=== PATIENT | female | born 1965 | race Caucasian/White ===

== ENCOUNTER 2023-11-25 14:21 | Inpatient (IN) | payer OTHER ==
--- NOTE | 2023-11-25 16:18 | ED ---
Alcohol HPI - General Chief Complaint: Alcohol Stated Complaint: Failure to Thrive, Mental Health Time Seen by Provider: 11/25/23 16:18 Source: patient, family Mode of arrival: ambulatory Limitations: no limitations - History of Present Illness Initial Comments: 58-year-old female brought in by her niece with concerns for the patient not being able to care for herself. Patient is an alcoholic, unable to discern how much she normally drinks a day. Her last drink was at 10 PM on 11/24. Patient's niece states that she was able to get her into rehab, however when she took her there today she was unable to stand on her own, patient has not been able to bathe or feed herself. History of DTs and alcoholic acidosis. Patient admits to depression, states that she has been drinking because her son recently. Denies chest pain, difficulty breathing, abdominal pain, vomiting, fevers - Related Data Home Medications Medication Instructions Recorded Confirmed Albuterol Sulfate [Proair Hfa] 1 - 2 puff INHALATION RT-Q6H PRN 12/14/14 11/25/23 Folic Acid 1 mg PO DAILY 11/25/23 11/25/23 Metoprolol Tartrate [Lopressor] 25 mg PO BID 11/25/23 11/25/23 Thiamine [Vitamin B-1] 100 mg PO DAILY 11/25/23 11/25/23 hydroCHLOROthiazide [Hydrodiuril] 25 mg PO DAILY 11/25/23 11/25/23 Allergies Allergy/AdvReac Type Severity Reaction Status Date / Time codeine Allergy Nausea & Verified 11/25/23 22:00 Vomiting oxycodone HCl [From Percodan] Allergy Nausea & Verified 11/25/23 22:00 Vomiting oxycodone terephthalate Allergy Nausea & Verified 11/25/23 22:00 [From Percodan] Vomiting Review of Systems ROS Statement: Those systems with pertinent positive or pertinent negative responses have been documented in the HPI. ROS Other: All systems not noted in ROS Statement are negative. Past Medical History Past Medical History: Asthma, Hyperlipidemia, Hypertension Additional Past Medical History / Comment(s): STATES HEART MURMUR A CHILD & WITH IT WAS HEARD- NOT SINCE THEN.,HEMORRHOIDS-BLEEDING AFETR BM & "HURTS", HX POLYPS, WAS ON ZOCOR FOR 3 DAYS -WAS NAUSEATED WHILE ON IT-STOPPED 10 DAYS. AGO- SHE WILL DISCUSS WITH HER , SABINE VERTIGO History of Any Multi-Drug Resistant Organisms: None Reported Past Surgical History: Appendectomy Additional Past Surgical History / Comment(s): COLONOSCOPY X 2 Past Anesthesia/Blood Transfusion Reactions: No Reported Reaction Additional Past Anesthesia/Blood Transfusion Reaction / Comment(s): HX VERTIGO- HEIGHTS MAKE IT WORSE Past Psychological History: No Psychological Hx Reported Smoking Status: Current every day smoker Past Alcohol Use History: Occasional Past Drug Use History: None Reported - Past Family History Mother Family Medical History: Cancer Additional Family Medical History / Comment(s): LIVER,KIDNEY & LUNG CA General Exam General appearance: alert, in no apparent distress Head exam: Present: atraumatic, normocephalic Eye exam: Present: normal appearance Neck exam: Present: normal inspection Respiratory exam: Present: normal lung sounds bilaterally. Absent: respiratory distress, wheezes, rales, rhonchi, stridor Cardiovascular Exam: Present: regular rate, normal rhythm, normal heart sounds. Absent: systolic murmur, diastolic murmur, rubs, gallop, clicks Neurological exam: Present: alert, oriented X3 Psychiatric exam: Present: depressed Skin exam: Present: warm, dry Course Vital Signs 11/25/23 11/25/23 14:39 21:00 Temperature 98.1 F Pulse Rate 95 86 Respiratory 18 18 Rate Blood Pressure 99/66 112/66 O2 Sat by Pulse 100 100 Oximetry Medical Decision Making - Medical Decision Making Was pt. sent in by a medical professional or institution (, PA, DOCUMENTATION ANALYST, urgent care, hospital, or long term...) When possible be specific @ -No Did you speak to anyone other than the patient for history (EMS, parent, family, police, friend...)? What history was obtained from this source @ -History obtained from family Did you review nursing and triage notes (agree or disagree)? Why? @ -I reviewed and agree with nursing and triage notes Were old charts reviewed (outside hosp., previous admission, EMS record, old EKG, old radiological studies, urgent care reports/EKG's, long term records)? Report findings @ -No old charts were reviewed Differential Diagnosis (chest pain, altered mental status, abdominal pain women, abdominal pain men, vaginal bleeding, weakness, fever, dyspnea, syncope, headac he, dizziness, GI bleed, back pain, seizure, CVA, palpatations, mental health, musculoskeletal)? @ -MDM Differential Weakness: Hypoglycemia, shock, sepsis, hyponatremia, anemia, infection, PR, ETOH, adverse medicine reaction, overdose, stroke. ... This is not meant to be an all- inclusive list EKG interpreted by me (3pts min.). @ -As above X-rays interpreted by me (1pt min.). @ -None done CT interpreted by me (1pt min.). @ -None done U/S interpreted by me (1pt. min.). @ -None done What testing was considered but not performed or refused? (CT, X-rays, U/S, labs)? Why? @ -None What meds were considered but not given or refused? Why? @ -None Did you discuss the management of the patient with other professionals (professionals i.e. , PA, DOCUMENTATION ANALYST, lab, RT, psych nurse, social science instructor, vessel crew member, teacher, business enterprise officer, case therapist)? Give summary @ -I spoke with Dr. Goodrich who accepted admission Was smoking cessation discussed for >3mins.? @ -No Was critical care preformed (if so, how long)? @ -No Were there social determinants of health that impacted care today? How? (Homelessness, low income, unemployed, alcoholism, drug addiction, transportation, low edu. Level, literacy, decrease access to med. care, halfway, rehab)? @ -alcoholism Was there de-escalation of care discussed even if they declined (Discuss DNR or withdrawal of care, Hospice)? DNR status @ -No What co-morbidities impacted this encounter? (DM, HTN, Smoking, COPD, CAD, Cancer, CVA, ARF, Chemo, Hep., AIDS, mental health diagnosis, sleep apnea, morbid obesity)? @ -None Was patient admitted / discharged? Hospital course, mention meds given and route, prescriptions, significant lab abnormalities, going to OR and other pertinent info. @ -58-year-old female with history of alcoholism presenting with alcohol wi thdrawal and inability to care for herself. Brought in by her niece. History and physical exam were conducted. Patient appears to be an alcoholic ketoacidosis, anion gap 24 sodium 120 potassium 2.2 chloride 77 carbon dioxide 19. Phosphorus 2.3 and magnesium 1.5. AST 83 and ALT 69. Urine shows no infectious process. No leukocytosis or anemia. Patient is started on potassium and magnesium replacement, started on D5/0.45 at rate of 75cc/hr. discussed admission and treatment plan with admitting physician Dr. Goodrich. patient and family are agreeable to this plan. She is placed on CIWA and seizure precautions. I discussed this case with my attending Dr. Jeong. Undiagnosed new problem with uncertain prognosis? @ -No Drug Therapy requiring intensive monitoring for toxicity (Heparin, Nitro, Insulin, Cardizem)? @ -No Were any procedures done? @ -No Diagnosis/symptom? @ -alcoholic ketoacidosis, alcohol withdrawal Acute, or Chronic, or Acute on Chronic? @ -Acute Uncomplicated (without systemic symptoms) or Complicated (systemic symptoms)? @ -complicated Side effects of treatment? @ -No Exacerbation, Progression, or Severe Exacerbation? @ -No Poses a threat to life or bodily function? How? (Chest pain, USA, PR, pneumonia, PE, COPD, DKA, ARF, appy, cholecystitis, CVA, Diverticulitis, Homicidal, Suicidal, threat to staff... and all critical care pts) @ -Yes - Lab Data Result diagrams: 11/25/23 16:32 11/25/23 16:32 Lab Results 11/25/23 11/25/23 11/25/23 Range/Units 16:32 16:32 16:32 WBC 8.2 (3.8-10.6) k/uL RBC 3.72 L (3.80-5.40) m/uL Hgb 12.9 (11.4-16.0) gm/dL Hct 34.5 (34.0-46.0) % MCV 92.6 (80.0-100.0) fL MCH 34.6 (25.0-35.0) pg MCHC 37.3 H (31.0-37.0) g/dL RDW 13.7 (11.5-15.5) % Plt Count 230 (150-450) k/uL MPV 7.4 Neutrophils % 78 % Lymphocytes % 15 % Monocytes % 6 % Eosinophils % 0 % Basophils % 0 % Neutrophils # 6.4 (1.3-7.7) k/uL Lymphocytes # 1.2 (1.0-4.8) k/uL Monocytes # 0.5 (0-1.0) k/uL Eosinophils # 0.0 (0-0.7) k/uL Basophils # 0.0 (0-0.2) k/uL Hyperchromasia Moderate Sodium 120 L (137-145) mmol/L Potassium 2.2 L* (3.5-5.1) mmol/L Chloride 77 L (98-107) mmol/L Carbon Dioxide 19 L (22-30) mmol/L Anion Gap 24 mmol/L BUN 28 H (7-17) mg/dL Creatinine 0.99 (0.52-1.04) mg/dL Est GFR (CKD-EPI)AfAm 73 (>60 ml/min/1.73 sqM) Est GFR (CKD-EPI)NonAf 64 (>60 ml/min/1.73 sqM) Glucose 107 H (74-99) mg/dL Plasma Lactic Acid Maximo (0.7-2.0) mmol/L Calcium 9.6 (8.4-10.2) mg/dL Phosphorus 2.3 L (2.5-4.5) mg/dL Magnesium 1.5 L (1.6-2.3) mg/dL Total Bilirubin 0.9 (0.2-1.3) mg/dL AST 83 H (14-36) U/L ALT 69 H (4-34) U/L Alkaline Phosphatase 111 (38-126) U/L Total Protein 7.1 (6.3-8.2) g/dL Albumin 4.5 (3.5-5.0) g/dL Urine Color Yellow Urine Appearance Cloudy H (Clear) Urine pH 6.0 (5.0-8.0) Ur Specific [place] 1.010 (1.001-1.035) Urine Protein Trace H (Negative) Urine Glucose (UA) Negative (Negative) Urine Ketones 1+ H (Negative) Urine Blood Moderate H (Negative) Urine Nitrite Negative (Negative) Urine Bilirubin 1+ H (Negative) Urine Urobilinogen 2.0 (<2.0) mg/dL Ur Leukocyte Esterase Negative (Negative) Urine RBC 7 H (0-5) /hpf Urine WBC <1 (0-5) /hpf Ur Squamous Epith Cells 5 H (0-4) /hpf Urine Bacteria Moderate H (None) /hpf 11/25/23 Range/Units 16:32 WBC (3.8-10.6) k/uL RBC (3.80-5.40) m/uL Hgb (11.4-16.0) gm/dL Hct (34.0-46.0) % MCV (80.0-100.0) fL MCH (25.0-35.0) pg MCHC (31.0-37.0) g/dL RDW (11.5-15.5) % Plt Count (150-450) k/uL MPV Neutrophils % % Lymphocytes % % Monocytes % % Eosinophils % % Basophils % % Neutrophils # (1.3-7.7) k/uL Lymphocytes # (1.0-4.8) k/uL Monocytes # (0-1.0) k/uL Eosinophils # (0-0.7) k/uL Basophils # (0-0.2) k/uL Hyperchromasia Sodium (137-145) mmol/L Potassium (3.5-5.1) mmol/L Chloride (98-107) mmol/L Carbon Dioxide (22-30) mmol/L Anion Gap mmol/L BUN (7-17) mg/dL Creatinine (0.52-1.04) mg/dL Est GFR (CKD-EPI)AfAm (>60 ml/min/1.73 sqM) Est GFR (CKD-EPI)NonAf (>60 ml/min/1.73 sqM) Glucose (74-99) mg/dL Plasma Lactic Acid Maximo 1.0 (0.7-2.0) mmol/L Calcium (8.4-10.2) mg/dL Phosphorus (2.5-4.5) mg/dL Magnesium (1.6-2.3) mg/dL Total Bilirubin (0.2-1.3) mg/dL AST (14-36) U/L ALT (4-34) U/L Alkaline Phosphatase (38-126) U/L Total Protein (6.3-8.2) g/dL Albumin (3.5-5.0) g/dL Urine Color Urine Appearance (Clear) Urine pH (5.0-8.0) Ur Specific [place] (1.001-1.035) Urine Protein (Negative) Urine Glucose (UA) (Negative) Urine Ketones (Negative) Urine Blood (Negative) Urine Nitrite (Negative) Urine Bilirubin (Negative) Urine Urobilinogen (<2.0) mg/dL Ur Leukocyte Esterase (Negative) Urine RBC (0-5) /hpf Urine WBC (0-5) /hpf Ur Squamous Epith Cells (0-4) /hpf Urine Bacteria (None) /hpf Disposition Clinical Impression: Alcoholic ketoacidosis, Alcohol withdrawal delirium Disposition: ADMITTED IP TO THIS HOSP Condition: Serious Time of Disposition: 21:27
[2023-11-25 17:57] LABS: Basophils % (A) 0 %; Eosinophils % (A) 0 %; HCT 34.5 % (34.0-46.0); HGB 12.9 gm/dL (11.4-16.0); Hyperchromasia Moderate; Lymphocytes # (A) 1.2 k/uL (1.0-4.8); Lymphocytes % (A) 15 %; MCH 34.6 pg (25.0-35.0); MCHC 37.3 g/dL (31.0-37.0); MCV 92.6 fL (80.0-100.0); Mean Platelet Volume 7.4; Monocytes # (A) 0.5 k/uL (0-1.0); Monocytes % (A) 6 %; Neutrophils # (A) 6.4 k/uL (1.3-7.7); Neutrophils % (A) 78 %; Platelet Count 230 k/uL (150-450); RBC 3.72 m/uL (3.80-5.40); RDW 13.7 % (11.5-15.5); WBC 8.2 k/uL (3.8-10.6)
[2023-11-25 18:09] LABS: ALT 69 U/L (4-34); AST 83 U/L (14-36); African American GFR (CKD) 73 (>60 ml/min/1.73 sqM); Albumin 4.5 g/dL (3.5-5.0); Alkaline Phosphatase 111 U/L (38-126); Anion Gap 24 mmol/L; Blood Urea Nitrogen 28 mg/dL (7-17); Calcium 9.6 mg/dL (8.4-10.2); Carbon Dioxide 19 mmol/L (22-30); Chloride 77 mmol/L (98-107); Glucose 107 mg/dL (74-99); Magnesium 1.5 mg/dL (1.6-2.3); Non-African American GFR(CKD) 64 (>60 ml/min/1.73 sqM); Phosphorus 2.3 mg/dL (2.5-4.5); Sodium 120 mmol/L (137-145); Total Bilirubin 0.9 mg/dL (0.2-1.3); Total Protein 7.1 g/dL (6.3-8.2)
[2023-11-25 19:25] LABS: Potassium 2.2 mmol/L (3.5-5.1)
[2023-11-25] MEDS ORDERED: THIAMINE 100 MG/ML 2 ML VIAL IVP STA (20:21)
[2023-11-25] MEDS ORDERED: Potassium Replacement Protocol 1 EACH MISC MISCELLANE PRN (20:22)
[2023-11-25] MEDS ORDERED: Magnesium Replacement Protocol 1 EACH MISC MISCELLANE PRN (20:22)
[2023-11-25 20:35] LABS: Appearance,Urine Cloudy (Clear); Bacteria,Urine Moderate /hpf; Bilirubin,Urine 1+ (Negative); Blood,Urine Moderate (Negative); Color,Urine Yellow; Glucose,Urine (UA) Negative (Negative); Ketones,Urine 1+ (Negative); Leukocyte Esterase,Urine Negative (Negative); Nitrite,Urine Negative (Negative); Protein,Urine Trace (Negative); RBC,Urine 7 /hpf (0-5); Squamous Epithelial Cell,Urine 5 /hpf (0-4); WBC,Urine <1 /hpf (0-5)
[2023-11-25] MEDS ORDERED: LORazepam 2 MG/ML INJ IV PRN ×3 (20:47)
[2023-11-25] MEDS: POTASSIUM CHLORIDE 10 MEQ in WATER FOR INJECTION 1 100ML.BAG IVPB SCH ×2 (20:49→21:57)
[2023-11-25] MEDS: MAGNESIUM SULFATE-D5W PMX 1 GM in DEXTROSE/WATER 1 100ML.BAG IVPB SCH ×2 (20:50→21:57)
[2023-11-25] MEDS ORDERED: DEXTROSE 5%-0.45% NACL 1,000 ML IV ONE (21:04)
[2023-11-25] MEDS: PANTOPRAZOLE 40 MG/10 ML VIAL IVP SCH (22:02)
[2023-11-26] MEDS: THIAMINE 100 MG TAB PO SCH (08:36)
[2023-11-26] MEDS: PANTOPRAZOLE 40 MG/10 ML VIAL IVP SCH (08:36)
[2023-11-26 09:39] LABS: Partial Thromboplastin Time 20.4 sec (22.0-30.0); Prothrombin Time 10.8 sec (10.0-12.5)
[2023-11-26 09:41] LABS: African American GFR (CKD) >90 (>60 ml/min/1.73 sqM); Anion Gap 16 mmol/L; Blood Urea Nitrogen 23 mg/dL (7-17); Calcium 9.5 mg/dL (8.4-10.2); Carbon Dioxide 25 mmol/L (22-30); Chloride 83 mmol/L (98-107); Glucose 114 mg/dL (74-99); Magnesium 2.1 mg/dL (1.6-2.3); Non-African American GFR(CKD) >90 (>60 ml/min/1.73 sqM); Sodium 124 mmol/L (137-145)
[2023-11-26 10:03] LABS: Potassium 2.3 mmol/L (3.5-5.1)
[2023-11-26] MEDS: POTASSIUM CHLORIDE ER 20 MEQ TAB.ER PO SCH ×3 (10:32→14:32)
[2023-11-26] MEDS: LACTATED RINGERS 1,000 ML IV SCH ×3 (10:54→21:12)
[2023-11-26] MEDS: METOPROLOL TARTRATE 12.5 MG TAB PO SCH ×2 (10:54→21:12)
[2023-11-26] MEDS: FOLIC ACID 1 MG TAB PO SCH (10:54)
[2023-11-26] MEDS: ENOXAPARIN 40 MG/0.4 ML SYRINGE SQ SCH (10:55)
[2023-11-26] MEDS ORDERED: NALOXONE 0.4 MG/ML 1 ML VIAL IV PRN (13:07)
[2023-11-26] MEDS: DICLOFENAC SODIUM GEL 100 GM TUBE TOPICAL SCH ×3 (13:50→21:12)
--- NOTE | 2023-11-26 15:05 | P.HPIM ---
History of Present Illness H&P Date: 11/26/23 Chief Complaint: Alcohol-related problems This is a 58-year-old patient who follows with Dr. Blaze Hunter/ mid-level provider Modesto Kimble. Patient is brought into the ER by her niece as patient not able to care for herself. Patient long-standing alcoholic. In August she lost her son and went on to drink even more. There were taken to the alcohol rehab but they were told as patient unable to take care of herself she was to be brought to the ER. Patient's had alcohol-related seizures in the past. And has been told she has alcohol liver disease. Patient is significantly depressed. Starts crying during the interview. Patient is to eat a well not too long ago but started drinking and has not been eating well. Recent falls. At the patient's house and has not been deemed livable anymore. Patient does go out on her own to bring alcohol. Denies fever and chills. Does get intermittent diarrhea. Abdominal discomfort. Nausea intermittently. Very anxious. Patient has not been working for some time. She also complaining of some pain in the right knee. Has been told in the past that she may need knee replacement. Orthopedic physician was out of [place]. No recent injury. Patient did play sports in her younger days. Patient drinks vodka. Lasting for 2 days ago. Review of systems: GEN.: Decreased appetite. No fever. EYES: None HEENT: None NECK: None RESPIRATORY: None CARDIOVASCULAR: None GASTROINTESTINAL: Intermittent diarrhea GENITOURINARY: None MUSCULOSKELETAL: Right knee pain LYMPHATICS: None HEMATOLOGICAL: None PSYCHIATRY: Depressed anxious NEUROLOGICAL: None Social history: Lives alone. Smokes intermittently. Has been drinking heavily on and off for several years since her 20s. Occasional marijuana in the past. Physical examination: VITAL SIGNS: 98.1, 95, 18, 99/66, 100% room air upon presentation GENERAL: BMI 27.4, somewhat disheveled, breaks down and crying during interview anxious. EYES: Pupils equal. Conjunctiva normal. HEENT: External appearance of nose and ears normal, oral cavity grossly normal. NECK: JVD not raised; masses not palpable. HEART: First and second heart sounds are normal; no edema. LUNGS: Respiratory rate normal; clear to auscultation. ABDOMEN: Soft, nontender, liver spleen not palpable, no masses palpable. PSYCH: Alert and oriented x3; mood and affect anxious and tearfull. MUSCULOSKELETAL:No Clubbing/cyanosis;muscles-grossly intact. Mild localized tenderness anteriorly below the kneecap NEUROLOGICAL: Cranial nerves grossly intact; no facial asymmetry, power and sensation grossly intact. LYMPHATICS: No lymph nodes palpable in the axilla and neck INVESTIGATIONS, reviewed in the clinical context: 11/26/2023: Sodium 124 potassium 2.3 BUN 23 creatinine 0.7 to the clinic was 114 11/25/2023: Potassium 2.2 BUN 28 creatinine 0.99. White count 8.2 hemoglobin 12.9 platelets 2:30 AST 83 AST 69 magnesia 1.5 Assessment and plan: -Probable bipolar disorder with severe depression and anxiety. Probably made worse with patient's in August 2023. Patient is not suicidal. Consults psychiatry. Also precipitating increasing alcohol intake -Alcohol use disorder Thiamine. Folic acid. CIWA scale. When medically stable and doing better patient should qualify for alcohol rehab. -Probable acute and chronic gastritis alcohol-related PPI. Tums. -Alcoholic liver disease Abstain from alcohol. Follow-up with Dr. Brittni Luna outpatient -Acute on chronic right knee pain. Possible osteoarthritis. X-ray. Voltaren gel. Consult orthopedics. -Essential hypertension Lopressor 12.5 by mouth twice a day. -Social issues.: Patient needs still me that patient's house is not inhabitable. publishing manager's consulted. IV fluids. Discussed length with the patient and his niece at the bedside. Questions answered. Soft diet. Given the complexity and severity of patient's condition expect the patient to be in the hospital at least for 2 overnights. Patient not safe from a psychiatry standpoint Past Medical History Past Medical History: Asthma, Hyperlipidemia, Hypertension Additional Past Medical History / Comment(s): STATES HEART MURMUR A CHILD & WITH IT WAS HEARD- NOT SINCE THEN.,HEMORRHOIDS-BLEEDING AFETR BM & "HURTS", HX POLYPS, WAS ON ZOCOR FOR 3 DAYS -WAS NAUSEATED WHILE ON IT-STOPPED 10 DAYS. AGO- SHE WILL DISCUSS WITH HER DRSaturnino, HX VERTIGO History of Any Multi-Drug Resistant Organisms: None Reported Past Surgical History: Appendectomy Additional Past Surgical History / Comment(s): COLONOSCOPY X 2 Past Anesthesia/Blood Transfusion Reactions: No Reported Reaction Additional Past Anesthesia/Blood Transfusion Reaction / Comment(s): HX VERTIGO- HEIGHTS MAKE IT WORSE Past Psychological History: No Psychological Hx Reported Smoking Status: Current every day smoker Past Alcohol Use History: Occasional Past Drug Use History: None Reported - Past Family History Mother Family Medical History: Cancer Additional Family Medical History / Comment(s): LIVER,KIDNEY & LUNG CA Medications and Allergies Home Medications Medication Instructions Recorded Confirmed Type Albuterol Sulfate [Proair Hfa] 1 - 2 puff INHALATION RT-Q6H PRN 12/14/14 11/25/23 History Folic Acid 1 mg PO DAILY 11/25/23 11/25/23 History Metoprolol Tartrate [Lopressor] 25 mg PO BID 11/25/23 11/25/23 History Thiamine [Vitamin B-1] 100 mg PO DAILY 11/25/23 11/25/23 History hydroCHLOROthiazide [Hydrodiuril] 25 mg PO DAILY 11/25/23 11/25/23 History Allergies Allergy/AdvReac Type Severity Reaction Status Date / Time codeine Allergy Nausea & Verified 11/25/23 22:00 Vomiting oxycodone HCl [From Percodan] Allergy Nausea & Verified 11/25/23 22:00 Vomiting oxycodone terephthalate Allergy Nausea & Verified 11/25/23 22:00 [From Percodan] Vomiting Physical Exam Vitals: Vital Signs Temp Pulse Pulse Resp BP BP Pulse Ox 11/26/23 08:30 97.8 F 91 16 119/80 100 11/26/23 06:50 93 20 99/64 99 11/26/23 04:00 91 16 97/62 100 11/25/23 21:00 86 18 112/66 100 11/25/23 14:39 98.1 F 95 18 99/66 100 Results CBC & Chem 7: 11/25/23 16:32 11/26/23 08:22 Labs: Abnormal Lab Results - Last 24 Hours (Table) 11/25/23 11/25/23 11/25/23 Range/Units 16:32 16:32 16:32 RBC 3.72 L (3.80-5.40) m/uL MCHC 37.3 H (31.0-37.0) g/dL APTT (22.0-30.0) sec Sodium 120 L (137-145) mmol/L Potassium 2.2 L* (3.5-5.1) mmol/L Chloride 77 L (98-107) mmol/L Carbon Dioxide 19 L (22-30) mmol/L BUN 28 H (7-17) mg/dL Glucose 107 H (74-99) mg/dL Phosphorus 2.3 L (2.5-4.5) mg/dL Magnesium 1.5 L (1.6-2.3) mg/dL AST 83 H (14-36) U/L ALT 69 H (4-34) U/L Urine Appearance Cloudy H (Clear) Urine Protein Trace H (Negative) Urine Ketones 1+ H (Negative) Urine Blood Moderate H (Negative) Urine Bilirubin 1+ H (Negative) Urine RBC 7 H (0-5) /hpf Ur Squamous Epith Cells 5 H (0-4) /hpf Urine Bacteria Moderate H (None) /hpf 11/26/23 11/26/23 Range/Units 08:22 08:22 RBC (3.80-5.40) m/uL MCHC (31.0-37.0) g/dL APTT 20.4 L (22.0-30.0) sec Sodium 124 L (137-145) mmol/L Potassium 2.3 L* (3.5-5.1) mmol/L Chloride 83 L (98-107) mmol/L Carbon Dioxide (22-30) mmol/L BUN 23 H (7-17) mg/dL Glucose 114 H (74-99) mg/dL Phosphorus (2.5-4.5) mg/dL Magnesium (1.6-2.3) mg/dL AST (14-36) U/L ALT (4-34) U/L Urine Appearance (Clear) Urine Protein (Negative) Urine Ketones (Negative) Urine Blood (Negative) Urine Bilirubin (Negative) Urine RBC (0-5) /hpf Ur Squamous Epith Cells (0-4) /hpf Urine Bacteria (None) /hpf
--- NOTE | 2023-11-26 15:46 | P.CN ---
Psychiatric Consult - . Consult date: 11/26/23 Consult:: 11/26/23 15:16 IDENTIFYING DATA: This patient is a 58 year old female who lives alone, and is not , and not employed. Has 1 son, who is . REASON FOR REFERRAL: Psychiatry was consulted for severe depression/ETOH/failure to thrive HISTORY OF PRESENT ILLNESS: The patient presented to the hospital on 11/24, with her niece. As per ED note "Patient is brought into the ER by her niece as patient not able to care for herself. Patient long-standing alcoholic. In August she lost her son and went on to drink even more. There were taken to the alcohol rehab but they were told as patient unable to take care of herself she w as to be brought to the ER. Patient's had alcohol-related seizures in the past. And has been told she has alcohol liver disease. Patient is significantly depressed. Starts crying during the interview. Patient is to eat a well not too long ago but started drinking and has not been eating well. Recent falls. At the patient's house and has not been deemed livable anymore. Patient does go out on her own to bring alcohol." Patient claims her depression has been getting worse since her son in front of her in August. States she has been drinking heavily since then. Denying any withdraw symptoms. Unable to shower herself, gets help once a week from her boyfriend with showering. States her home is condemned due to the condition of it. Patient is tearful at times during the interview, and then is very apathetic when talking about other things. Patient minimizing need for help or treatment. Very concrete. At this time patient denies any suicidal or homical ideations, intent or plan. Patient denies any auditory, visual hallucinations and denies any paranoia or delusions. Patients admits to using alcohol, cigarettes and marijuana. PAST PSYCHIATRIC HISTORY: Patient has a a history of depression Patient states she sees a therapist every Thursday, and is prescribed Remeron by her PCP. Patient denies any history of suicide attempts in the past, and denies any previous psych admissions PAST MEDICAL HISTORY: as per ED note ALLERGIES: as per EMR. CHEMICAL DEPENDENCY HISTORY: as per HPI. FAMILY PSYCHIATRIC/SUBSTANCE USE HISTORY: denies SOCIAL HISTORY: Patient was born and raised in [place], [place], graduated high school, went to college for two years, and previously worked as an commercial accountant. Has one son, who is recently . Denies any legal trouble. MENTAL STATUS EXAM: General Appearance: Patient appears to be stated age is alert, pleasant, and cooperative. Patient appears to have fair hygiene and grooming wearing hospital gown with fair eye contact. Behavior: Patient is calmly lying in bed without any agitated behavior. Tearful at times Speech: Patient's speech is fluent and nonpressured. Mildly circumstantial Mood/Affect: Patient reports their mood is "depressed", affect is congruent Minimizing need for help Suicidality/Homicidality: Patient denies having any suicidal or homicidal ideation intent or plan. Perceptions: Patient denies any visual hallucinations and denies any auditory hallucinations Though content/process: There is no evidence of any delusional thought content and thought process circumstantial Memory and concentration: AOX3, grossly intact for the purposes of this session. Can spell "WORLD" backwards Judgment and insight: chronically poor IMPRESSIONS: major depressive disorder, without psychotic features failure to thrive alcohol dependance, severe nicotine dependance cannabis use disorder, mild PLAN: -At this time will continue to follow along to see if patient meets psychiatric criteria once medically stable. -Would recommend the following medication changes/additions: Remeron 15 qhs for sleep/mood Lexapro 10mg daily for depression/anxiety Librium 25mg tid for alcohol withdraw, will consider anti craving medications -CIWA protocol with PRN Ativan for alcohol withdrawal. Continue to monitor vital signs. -County Library Director spoke with patient about substance abuse and the harmful effects on medical and mental health, patient verbally understood and agreed. -hoe worker to provide patient substance use treatment resources including AA/NA meetings in the community. -hoe worker to provide patient with access line number to call for inpatient substance rehab -Communicated plan to patient's nurse -Will continue to follow along as needed -Please contact with any questions. 11/26/23 15:44
[2023-11-26] MEDS: CALCIUM CARBONATE 500 MG CHEWABLE PO SCH ×2 (16:13→16:40)
[2023-11-26] MEDS: chlordiazePOXIDE 25 MG CAP PO SCH ×2 (16:13→21:12)
[2023-11-26] MEDS: MAGNESIUM OXIDE 400 MG TAB PO SCH ×2 (16:13→21:11)
[2023-11-26] MEDS: ESCITALOPRAM 10 MG TAB PO SCH (16:41)
--- NOTE | 2023-11-26 18:57 | XR ---
EXAMINATION TYPE: XR knee complete RT DATE OF EXAM: 11/26/2023 COMPARISON: NONE HISTORY: 58 year-old female acute right knee pain TECHNIQUE: 3 views FINDINGS: No knee joint effusion. Extensor mechanism appears intact. No acute fracture, subluxation, dislocation is seen. IMPRESSION: No acute osseous abnormality seen. If symptoms persist, consider MRI.
[2023-11-26] MEDS ORDERED: MIRTAZAPINE 15 MG TAB PO SCH (21:00)
[2023-11-27] MEDS: LACTATED RINGERS 1,000 ML IV SCH ×2 (03:18→12:22)
[2023-11-27] MEDS: FOLIC ACID 1 MG TAB PO SCH (08:07)
[2023-11-27] MEDS: chlordiazePOXIDE 25 MG CAP PO SCH ×2 (08:07→18:10)
[2023-11-27] MEDS: METOPROLOL TARTRATE 12.5 MG TAB PO SCH (08:07)
[2023-11-27] MEDS: ENOXAPARIN 40 MG/0.4 ML SYRINGE SQ SCH (08:07)
[2023-11-27] MEDS: MAGNESIUM OXIDE 400 MG TAB PO SCH (08:07)
[2023-11-27] MEDS: THIAMINE 100 MG TAB PO SCH (08:07)
[2023-11-27] MEDS: CALCIUM CARBONATE 500 MG CHEWABLE PO SCH ×2 (08:07→12:22)
[2023-11-27] MEDS: DICLOFENAC SODIUM GEL 100 GM TUBE TOPICAL SCH ×2 (08:08→12:24)
[2023-11-27] MEDS: ESCITALOPRAM 10 MG TAB PO SCH (08:08)
[2023-11-27 09:03] VITALS: BP 113/71; PULSE 95; RESP 14; TEMP 98.2
[2023-11-27] MEDS ORDERED: methylPREDNISolone ACETATE 40 MG/ML 1 ML VIAL INTRAARTIC STA (09:05)
[2023-11-27] MEDS ORDERED: LIDOCAINE 2% INJ 20 MG/ML (20 ML MDV) SQ STA (09:05)
--- NOTE | 2023-11-27 09:55 | P.CNOR ---
History of Present Illness - [facility] Consult date: 11/27/23 Consult reason: joint pain (Right knee pain.) History of present illness: This is a 58-year-old female admitted to the hospital with all intoxication and depression. During her stay she was complaining of right knee pain. She states that she does have history of right knee pain and had a cortisone injection 3 y ears ago which improved her symptoms significantly. She reports no recent injury or trauma to the knee. We were consulted for orthopedic evaluation. Past Medical History Past Medical History: Asthma, Hyperlipidemia, Hypertension Additional Past Medical History / Comment(s): STATES HEART MURMUR A CHILD & WITH IT WAS HEARD- NOT SINCE THEN.,HEMORRHOIDS-BLEEDING AFETR BM & "HURTS", HX POLYPS, WAS ON ZOCOR FOR 3 DAYS -WAS NAUSEATED WHILE ON IT-STOPPED, HX VERTIGO, HX DT's and seizure History of Any Multi-Drug Resistant Organisms: None Reported Past Surgical History: Appendectomy Additional Past Surgical History / Comment(s): COLONOSCOPY X 2 Past Anesthesia/Blood Transfusion Reactions: No Reported Reaction Additional Past Anesthesia/Blood Transfusion Reaction / Comm: HX VERTIGO- HEIGHTS MAKE IT WORSE Smoking Status: Current every day smoker - Past Family History Mother Family Medical History: Cancer Additional Family Medical History / Comment(s): LIVER,KIDNEY & LUNG CA Medications and Allergies Home Medications Medication Instructions Recorded Confirmed Type Albuterol Sulfate [Proair Hfa] 1 - 2 puff INHALATION RT-Q6H PRN 12/14/14 11/25/23 History Folic Acid 1 mg PO DAILY 11/25/23 11/25/23 History Metoprolol Tartrate [Lopressor] 25 mg PO BID 11/25/23 11/25/23 History Thiamine [Vitamin B-1] 100 mg PO DAILY 11/25/23 11/25/23 History hydroCHLOROthiazide [Hydrodiuril] 25 mg PO DAILY 11/25/23 11/25/23 History Allergies Allergy/AdvReac Type Severity Reaction Status Date / Time codeine Allergy Nausea & Verified 11/25/23 22:00 Vomiting oxycodone HCl [From Percodan] Allergy Nausea & Verified 11/25/23 22:00 Vomiting oxycodone terephthalate Allergy Nausea & Verified 11/25/23 22:00 [From Percodan] Vomiting Physical Examination This is a pleasant 58-year-old female in no acute distress. She is moving very very slow in bed and is slow to respond to conversation and commands. Exam of the right lower extremity reveals no erythema or ecchymosis. There is no joint effusion noted to the knee. She has full range of motion the knee without difficulty. There is some tenderness to palpation about the medial joint line. There is no patellofemoral irritability. She is able to fully extend the knee and sustain extension against resistance. She has flexion past 90. Neurovascular status to the lower extremity is intact. Results Trays reveal I'll to moderate degenerative changes with medial joint line narrowing. No acute fracture noted. - Labs Labs: Abnormal Lab Results - Last 24 Hours (Table) 11/26/23 Range/Units 08:22 Sodium 124 L (137-145) mmol/L Potassium 2.3 L* (3.5-5.1) mmol/L Chloride 83 L (98-107) mmol/L BUN 23 H (7-17) mg/dL Glucose 114 H (74-99) mg/dL H & H 11/25/23 Range/Units 16:32 Hgb 12.9 (11.4-16.0) gm/dL Hct 34.5 (34.0-46.0) % Coagulation 11/26/23 Range/Units 08:22 INR 1.0 (<1.2) Result Diagrams: 11/25/23 16:32 11/26/23 17:02 Assessment and Plan (1) Depression Current Visit: Yes Status: Acute Code(s): F32.A - DEPRESSION, UNSPECIFIED SNOMED Code(s): 98088543 (2) Degenerative arthritis of right knee Current Visit: Yes Status: Acute Code(s): M17.11 - UNILATERAL PRIMARY OSTEOARTHRITIS, RIGHT KNEE SNOMED Code(s): 704699515834875 (3) Alcohol withdrawal delirium Current Visit: Yes Status: Acute Code(s): F10.931 - ALCOHOL USE, UNSPECIFIED WITH WITHDRAWAL DELIRIUM SNOMED Code(s): 9548168 (4) Alcoholic ketoacidosis Current Visit: Yes Status: Acute Code(s): E87.29 - OTHER ACIDOSIS SNOMED Code(s): 25288872 Plan: The clinical and x-ray findings are discussed with the patient. She is requesting a cortisone injection which is given today. I injected the right knee with 40 mg of Depo-Medrol and 2 mL of 2% lidocaine. The patient tolerated the injection well. She is encouraged to ambulate as tolerated. She is to follow-up with our office as needed.
[2023-11-27 10:40] VITALS: BMI 27.4
--- NOTE | 2023-12-01 20:20 | P.DS ---
Providers Date of admission: 11/25/23 20:45 Expected date of discharge: 11/27/23 Attending physician: Ross Goodrich Consults: 11/25/23 21:27 Consult Physician Stat Consulting Provider: Chris Reardon Consult Reason/Comments: depression Do you want consulting provider notified?: Yes, Notify in am 11/26/23 12:56 Consult Physician Routine Consulting Provider: Collin Veronica Consult Reason/Comments: severe depression Do you want consulting provider notified?: Yes Consult Physician Routine Consulting Provider: Adrian Gregg Consult Reason/Comments: R knee pain Do you want consulting provider notified?: Yes Primary care physician: Blaze Hunter [facility] Course: Chief Complaint: Alcohol-related problems This is a 58-year-old patient who follows with Dr. Blaze Hunter/ mid-level provider Modesto Kimble. Patient is brought into the ER by her niece as patient not able to care for herself. Patient long-standing alcoholic. In August she lost her son and went on to drink even more. There were taken to the alcohol rehab but they were told as patient unable to take care of herself she was to be brought to the ER. Patient's had alcohol-related seizures in the past. And has been told she has alcohol liver disease. Patient is significantly depressed. Starts crying during the interview. Patient is to eat a well not too long ago but started drinking and has not been eating well. Recent falls. At the patient's house and has not been deemed livable anymore. Patient does go out on her own to bring alcohol. Denies fever and chills. Does get intermittent diarrhea. Abdominal discomfort. Nausea intermittently. Very anxious. Patient has not been working for some time. She also complaining of some pain in the right knee . Has been told in the past that she may need knee replacement. Orthopedic physician was out of [place]. No recent injury. Patient did play sports in her younger days. Patient drinks vodka. Lasting for 2 days ago. 11/27/2023: Patient doing much better. Tolerating food. Keeping it down. No nausea. Less anxious. Seen by orthopedics Dr. Pereira. Right knee was injected with Depo-Medrol. Patient is medically stable to be transferred to psychiatry unit. Voltaren gel for the knee. Discussed with patient. Social history: Lives alone. Smokes intermittently. Has been drinking heavily on and off for several years since her 20s. Occasional marijuana in the past. Physical examination: VITAL SIGNS: 98.2, 95, 14, 113 with 71, 98% room air GENERAL: Comfortable. Less anxious today. EYES: Pupils equal. Conjunctiva normal. HEENT: External appearance of nose and ears normal, oral cavity grossly normal. NECK: JVD not raised; masses not palpable. HEART: First and second heart sounds are normal; no edema. LUNGS: Respiratory rate normal; clear to auscultation. ABDOMEN: Soft, nontender, liver spleen not palpable, no masses palpable. PSYCH: Alert and oriented x3; mood and affect less anxious. MUSCULOSKELETAL:No Clubbing/cyanosis;muscles-grossly intact. Mild localized tenderness anteriorly below the kneecap INVESTIGATIONS, reviewed in the clinical context: Repeat potassium 4.7 11/26/2023: Sodium 124 potassium 2.3 BUN 23 creatinine 0.7 to the clinic was 114 11/25/2023: Potassium 2.2 BUN 28 creatinine 0.99. White count 8.2 hemoglobin 12.9 platelets 2:30 AST 83 AST 69 magnesia 1.5 Assessment and plan: -Probable bipolar disorder with severe depression and anxiety. Probably made worse with patient's in August 2023. Patient is not suicidal. Seen by psychiatry. Also precipitating increasing alcohol intake Except. To 3 W. inpatient psychiatry unit. -Alcohol use disorder Thiamine. Folic acid. CIWA scale. -Hyponatremia: Likely hypoosmolar hypervolemic Her diet is improving. Continue same. -Probable acute and chronic gastritis alcohol-related PPI. Tums. -Alcoholic liver disease Abstain from alcohol. Follow-up with Dr. Brittni Luna outpatient -Acute on chronic right knee pain. Possible osteoarthritis. 1 dose of IV Depo-Medrol in the right knee. X-ray. Voltaren gel. -Essential hypertension Lopressor 12.5 by mouth twice a day. -Social issues.: Seen by culture manager's Disposition: 3 W.-inpatient psychiatry Past Medical History Past Medical History: Asthma, Hyperlipidemia, Hypertension Additional Past Medical History / Comment(s): STATES HEART MURMUR A CHILD & WITH IT WAS HEARD- NOT SINCE THEN.,HEMORRHOIDS-BLEEDING AFETR BM & "HURTS", HX POLYPS, WAS ON ZOCOR FOR 3 DAYS -WAS NAUSEATED WHILE ON IT-STOPPED 10 DAYS. AGO- SHE WILL DISCUSS WITH HER DRSaturnino, HX VERTIGO History of Any Multi-Drug Resistant Organisms: None Reported Past Surgical History: Appendectomy Additional Past Surgical History / Comment(s): COLONOSCOPY X 2 Past Anesthesia/Blood Transfusion Reactions: No Reported Reaction Additional Past Anesthesia/Blood Transfusion Reaction / Comment(s): HX VERTIGO- HEIGHTS MAKE IT WORSE Past Psychological History: No Psychological Hx Reported Smoking Status: Current every day smoker Past Alcohol Use History: Occasional Past Drug Use History: None Reported Plan - Discharge Summary Discharge Rx Participant: No New Discharge Prescriptions: New Escitalopram [Lexapro] 10 mg PO DAILY #30 tab Magnesium Oxide [Mag-Ox] 400 mg PO DAILY #30 tab Mirtazapine [Remeron] 15 mg PO HS #30 tab Diclofenac Sodium Gel [Voltaren 1% Gel] 4 gm TOPICAL QID gm Continue Albuterol Sulfate [Proair Hfa] 1 - 2 puff INHALATION RT-Q6H PRN PRN Reason: Shortness Of Breath Thiamine [Vitamin B-1] 100 mg PO DAILY Metoprolol Tartrate [Lopressor] 25 mg PO BID hydroCHLOROthiazide [Hydrodiuril] 25 mg PO DAILY Folic Acid 1 mg PO DAILY Discharge Medication List Albuterol Sulfate [Proair Hfa] 1 - 2 puff INHALATION RT-Q6H PRN 12/14/14 [History] Folic Acid 1 mg PO DAILY 11/25/23 [History] Metoprolol Tartrate [Lopressor] 25 mg PO BID 11/25/23 [History] Thiamine [Vitamin B-1] 100 mg PO DAILY 11/25/23 [History] hydroCHLOROthiazide [Hydrodiuril] 25 mg PO DAILY 11/25/23 [History] Diclofenac Sodium Gel [Voltaren 1% Gel] 4 gm TOPICAL QID gm 11/27/23 [Rx] Escitalopram [Lexapro] 10 mg PO DAILY #30 tab 11/27/23 [Rx] Magnesium Oxide [Mag-Ox] 400 mg PO DAILY #30 tab 11/27/23 [Rx] Mirtazapine [Remeron] 15 mg PO HS #30 tab 11/27/23 [Rx] Follow up Appointment(s)/Referral(s): Charlee Luna MD [STAFF PHYSICIAN] - 3 Weeks Blaze Hunter MD [Primary Care Provider] - 1-2 days Activity/Diet/Wound Care/Special Instructions: if pt accepted to [facility] then dc to [facility]. otherwise dc per registered nurse hh case manager Discharge/Stand Alone Forms: AA Meetings [facility], [facility], Outpatient Counseling, Inp Substance Abuse Facilities Discharge Disposition: TRANSFER TO PSYCH HOSP/UNIT
== END 2023-11-27 16:11 | DRG 241 ==
LOC: EC 14:21 → 5NMEDONC 20:45 → 1SOBS 11-26 07:38
PROVIDERS: ADMIT Hospitalist; ATTEND Hospitalist
DX: K29.20 Alcoholic gastritis without bleeding (principal); E87.29 Other acidosis; E78.5 Hyperlipidemia, unspecified; F10.231 Alcohol dependence with withdrawal delirium; F41.9 Anxiety disorder, unspecified; F31.4 Bipolar disorder, current episode depressed, severe, without psychotic features; G89.29 Other chronic pain; I10 Essential (primary) hypertension; K70.9 Alcoholic liver disease, unspecified; F17.210 Nicotine dependence, cigarettes, uncomplicated; R19.7 Diarrhea, unspecified; R42 Dizziness and giddiness; R62.7 Adult failure to thrive; J45.909 Unspecified asthma, uncomplicated; M17.11 Unilateral primary osteoarthritis, right knee; Z79.899 Other long term (current) drug therapy; Z71.3 Dietary counseling and surveillance; Z60.2 Problems related to living alone; Z28.21 Immunization not carried out because of patient refusal; Z88.5 Allergy status to narcotic agent; Z63.4 Disappearance and death of family member; Z56.0 Unemployment, unspecified; Z86.010 Personal history of colon polyps; Z91.81 History of falling
CPT/HCPCS: 36415; 80048; 80053; 81001; 83605; 83735; 84100; 84132; 85025; 85610; 85730; 93005; 96361; 96365; 96366; 96368; 96375; 99285

== ENCOUNTER 2023-11-27 14:51 | Inpatient (IN) | payer MEDICAID, OTHER ==
[2023-11-27] MEDS ORDERED: MAGNESIUM HYDROXIDE 2,400 MG/30 ML CUP PO PRN (14:57)
[2023-11-27] MEDS ORDERED: LORazepam 1 MG TAB PO PRN (14:57)
[2023-11-27] MEDS ORDERED: ACETAMINOPHEN TAB 325 MG TAB PO PRN (14:57)
[2023-11-27] MEDS ORDERED: MAG HYDROX/AL HYDROX/SIMETH 30 ML CUP PO PRN (14:57)
[2023-11-27] MEDS ORDERED: LORazepam 2 MG/ML INJ IM PRN (14:57)
[2023-11-27] MEDS: DICLOFENAC SODIUM GEL 100 GM TUBE TOPICAL SCH ×2 (19:41→21:11)
[2023-11-27] MEDS: MIRTAZAPINE 15 MG TAB PO SCH (21:11)
[2023-11-27] MEDS: METOPROLOL TARTRATE 25 MG TAB PO SCH (21:11)
[2023-11-28] MEDS ORDERED: NICOTINE 14MG/24HR PATCH TRANSDERM SCH (09:00)
[2023-11-28] MEDS: METOPROLOL TARTRATE 25 MG TAB PO SCH ×2 (09:15→20:57)
[2023-11-28] MEDS: FOLIC ACID 1 MG TAB PO SCH (09:15)
[2023-11-28] MEDS: MAGNESIUM OXIDE 400 MG TAB PO SCH (09:15)
[2023-11-28] MEDS: ESCITALOPRAM 10 MG TAB PO SCH (09:15)
[2023-11-28] MEDS: THIAMINE 100 MG TAB PO SCH (09:15)
[2023-11-28] MEDS: DICLOFENAC SODIUM GEL 100 GM TUBE TOPICAL SCH ×4 (09:17→20:59)
[2023-11-28 09:24] LABS: Basophils % (A) 0 %; Eosinophils % (A) 0 %; HCT 34.1 % (34.0-46.0); HGB 11.9 gm/dL (11.4-16.0); Lymphocytes # (A) 1.1 k/uL (1.0-4.8); Lymphocytes % (A) 9 %; Mean Platelet Volume 7.7; Monocytes # (A) 0.6 k/uL (0-1.0); Monocytes % (A) 5 %; Neutrophils # (A) 11.2 k/uL (1.3-7.7); Neutrophils % (A) 86 %; Platelet Count 299 k/uL (150-450); RBC 3.51 m/uL (3.80-5.40); RDW 13.8 % (11.5-15.5); WBC 13.1 k/uL (3.8-10.6)
[2023-11-28 09:48] LABS: ALT 56 U/L (4-34); AST 59 U/L (14-36); African American GFR (CKD) >90 (>60 ml/min/1.73 sqM); Albumin 4.3 g/dL (3.5-5.0); Alkaline Phosphatase 109 U/L (38-126); Anion Gap 13 mmol/L; Blood Urea Nitrogen 13 mg/dL (7-17); Calcium 10.5 mg/dL (8.4-10.2); Carbon Dioxide 30 mmol/L (22-30); Chloride 95 mmol/L (98-107); Glucose 114 mg/dL (74-99); Non-African American GFR(CKD) >90 (>60 ml/min/1.73 sqM); Potassium 2.9 mmol/L (3.5-5.1); Sodium 138 mmol/L (137-145); Total Bilirubin 0.5 mg/dL (0.2-1.3); Total Protein 7.2 g/dL (6.3-8.2)
[2023-11-28] MEDS ORDERED: Magnesium Replacement Protocol 1 EACH MISC MISCELLANE PRN (10:48)
[2023-11-28] MEDS ORDERED: Potassium Replacement Protocol 1 EACH MISC MISCELLANE PRN (10:48)
[2023-11-28 11:24] LABS: Appearance,Urine Cloudy (Clear); Bacteria,Urine Moderate /hpf; Bilirubin,Urine Negative (Negative); Blood,Urine Small (Negative); Color,Urine Light Yellow; Glucose,Urine (UA) Negative (Negative); Hyaline Casts,Urine 1 /lpf (0-2); Ketones,Urine Negative (Negative); Leukocyte Esterase,Urine Negative (Negative); Mucus,Urine Rare /hpf; Nitrite,Urine Negative (Negative); PH, Urine 6.5 (5.0-8.0); Protein,Urine Negative (Negative); RBC,Urine 2 /hpf (0-5); Squamous Epithelial Cell,Urine 12 /hpf (0-4); Urobilinogen,Urine <2.0 mg/dL (<2.0); WBC,Urine 3 /hpf (0-5)
--- NOTE | 2023-11-28 12:45 | XR ---
EXAMINATION TYPE: XR chest 1V portable DATE OF EXAM: 11/28/2023 COMPARISON: None INDICATION: Leukocytosis TECHNIQUE: Single frontal view of the chest is obtained. FINDINGS: The heart size is normal. The pulmonary vasculature is normal. The lungs are clear. IMPRESSION: 1. No acute pulmonary process.
[2023-11-28 13:08] LABS: Magnesium 1.3 mg/dL (1.6-2.3)
[2023-11-28] MEDS: POTASSIUM CHLORIDE ER 20 MEQ TAB.ER PO SCH ×3 (15:25→17:33)
[2023-11-28] MEDS ORDERED: MAGNESIUM OXIDE 400 MG TAB PO ONE (16:00)
--- NOTE | 2023-11-28 18:49 | P.HP ---
Psychiatric H&P - . H&P Date: 11/28/23 History & Physical: Allergies Allergy/AdvReac Type Severity Reaction Status Date / Time codeine Allergy Nausea & Verified 11/27/23 19:44 Vomiting oxycodone HCl [From Percodan] Allergy Nausea & Verified 11/27/23 19:44 Vomiting oxycodone terephthalate Allergy Nausea & Verified 11/27/23 19:44 [From Percodan] Vomiting Vital Signs Temp 97.6 F 11/28/23 07:03 Pulse 93 11/28/23 09:21 Resp 16 11/28/23 09:21 BP 140/74 11/28/23 09:21 Pulse Ox 99 11/27/23 16:19 FiO2 Intake & Output 11/27/23 11/28/23 11/28/23 18:59 06:59 18:59 Weight 68.663 kg Laboratory Last Values WBC 13.1 k/uL (3.8-10.6) H 11/28/23 08:28 RBC 3.51 m/uL (3.80-5.40) L 11/28/23 08:28 Hgb 11.9 gm/dL (11.4-16.0) 11/28/23 08:28 Hct 34.1 % (34.0-46.0) 11/28/23 08:28 MCV 97.0 fL (80.0-100.0) 11/28/23 08:28 MCH 34.0 pg (25.0-35.0) 11/28/23 08:28 MCHC 35.0 g/dL (31.0-37.0) 11/28/23 08:28 RDW 13.8 % (11.5-15.5) 11/28/23 08:28 Plt Count 299 k/uL (150-450) 11/28/23 08:28 MPV 7.7 11/28/23 08:28 Neutrophils % 86 % 11/28/23 08:28 Lymphocytes % 9 % 11/28/23 08:28 Monocytes % 5 % 11/28/23 08:28 Eosinophils % 0 % 11/28/23 08:28 Basophils % 0 % 11/28/23 08:28 Neutrophils # 11.2 k/uL (1.3-7.7) H 11/28/23 08:28 Lymphocytes # 1.1 k/uL (1.0-4.8) 11/28/23 08:28 Monocytes # 0.6 k/uL (0-1.0) 11/28/23 08:28 Eosinophils # 0.0 k/uL (0-0.7) 11/28/23 08:28 Basophils # 0.0 k/uL (0-0.2) 11/28/23 08:28 Sodium 138 mmol/L (137-145) 11/28/23 08:28 Potassium 2.9 mmol/L (3.5-5.1) L 11/28/23 08:28 Chloride 95 mmol/L (98-107) L 11/28/23 08:28 Carbon Dioxide 30 mmol/L (22-30) 11/28/23 08:28 Anion Gap 13 mmol/L 11/28/23 08:28 BUN 13 mg/dL (7-17) 11/28/23 08:28 Creatinine 0.69 mg/dL (0.52-1.04) 11/28/23 08:28 Est GFR (CKD-EPI)AfAm >90 (>60 ml/min/1.73 sqM) 11/28/23 08:28 Est GFR (CKD-EPI)NonAf >90 (>60 ml/min/1.73 sqM) 11/28/23 08:28 Glucose 114 mg/dL (74-99) H 11/28/23 08:28 Calcium 10.5 mg/dL (8.4-10.2) H 11/28/23 08:28 Total Bilirubin 0.5 mg/dL (0.2-1.3) 11/28/23 08:28 AST 59 U/L (14-36) H 11/28/23 08:28 ALT 56 U/L (4-34) H 11/28/23 08:28 Alkaline Phosphatase 109 U/L (38-126) 11/28/23 08:28 Total Protein 7.2 g/dL (6.3-8.2) 11/28/23 08:28 Albumin 4.3 g/dL (3.5-5.0) 11/28/23 08:28 TSH 1.760 mIU/L (0.465-4.680) 11/28/23 08:28 Urine Color Light Yellow 11/28/23 09:55 Urine Appearance Cloudy (Clear) H 11/28/23 09:55 Urine pH 6.5 (5.0-8.0) 11/28/23 09:55 Ur Specific [place] 1.010 (1.001-1.035) 11/28/23 09:55 Urine Protein Negative (Negative) 11/28/23 09:55 Urine Glucose (UA) Negative (Negative) 11/28/23 09:55 Urine Ketones Negative (Negative) 11/28/23 09:55 Urine Blood Small (Negative) H 11/28/23 09:55 Urine Nitrite Negative (Negative) 11/28/23 09:55 Urine Bilirubin Negative (Negative) 11/28/23 09:55 Urine Urobilinogen <2.0 mg/dL (<2.0) 11/28/23 09:55 Ur Leukocyte Esterase Negative (Negative) 11/28/23 09:55 Urine RBC 2 /hpf (0-5) 11/28/23 09:55 Urine WBC 3 /hpf (0-5) 11/28/23 09:55 Ur Squamous Epith Cells 12 /hpf (0-4) H 11/28/23 09:55 Urine Bacteria Moderate /hpf (None) H 11/28/23 09:55 Hyaline Casts 1 /lpf (0-2) 11/28/23 09:55 Urine Mucus Rare /hpf (None) H 11/28/23 09:55 11/28/23 12:16 IDENTIFYING DATA: Patient is an unemployed, 58-year-old female who is presenting with suicidal ideation and alcohol use. HPI: While in the ED, patient reportedly stated to the [facility] social research assistant that "If I go home I am just going to drink myself to ". She was medically admitted for 3 days prior to admission on the psychiatric unit due to alcohol withdrawal, during which psychiatry evaluated her and placed her on Lexapro and Remeron. She was also seen by orthopedics prior to admission who gave her a cortisone injection and recommended to follow up outpatient. Patient was quite depressed and tearful during assessment today. She states that she wanted to "drink myself to " since the of her son on August 26, 2023. She says that he due to cardiac arrest from complications of esophageal varices. Since then, she endorses drinking "all day every day ". Admits to drinking about half a gallon of vodka daily. She reports having had a seizure on August 26 when she tried to quit drinking. Other stressor includes her house recently being condemned and she says she has nowhere to go right now although she paid for her house. She endorses having poor appetite and said that prior to admission, she did not eat for 12 days. She reports having constant guilt for feeling that she "should've done more" to help her son. She endorses low energy and anhedonia. Patient also voices numerous symptoms of complex bereavement including having flashbacks, nightmares, avoiding thoughts of her son by participating in risky behaviors such as excessive drinking, and deep sorrow and difficulty processing his . Prior to her son's , patient says that she was not depressed but admits that she required anti depressant medications in the past. She denies symptoms consistent with marley. She denies auditory and visual hallucinations, as asked and assessed. He is to endorse passive suicidal ideation at the moment. She denies homicidal ideation. PSYCH HX: Patient has a a history of depression. Patient states she sees a therapist [facility] every Thursday, and is prescribed Remeron by her PCP. Patient denies any history of suicide attempts in the past, and denies any previous psych admissions PMH: as per ED note SUBSTANCE HX: Patient states that she had been sober for 2 years prior to recent relapse with alcohol. However, she admits that she had been struggling with alcohol her whole life. SOCIAL/LEGAL HX: Patient was born and raised in [place], [place], graduated high school, went to college for two years, and previously worked as an senior corporate accountant for 40 years. Had one son, who is recently . Denies any legal trouble. She says that her house has been condemned and she has 1 cat and 2 dogs. She reports having a boyfriend. FAM PSYCH HX: Brother: Depression, mother: Depression, uncle: Schizophrenia. MENTAL STATUS EXAM: General Appearance: Patient appears to be stated age is alert, pleasant, and cooperative. Patient appears to have fair hygiene and grooming wearing hospital gown with poor eye contact. Behavior: Patient is calmly sitting in bed without any agitated behavior. Speech: Patient's speech is fluent and nonpressured. Mood/Affect: Patient reports their mood is "depressed", affect is congruent, tearful Suicidality/Homicidality: Patient denies having any suicidal or homicidal ideation intent or plan. Perceptions: Patient denies any visual hallucinations and denies any auditory hallucinations Though content/process: There is no evidence of any delusional thought content and thought process circumstantial Memory and concentration: AOX3, grossly intact for the purposes of this session. Can spell "WORLD" backwards Judgment and insight: Poor STRENGTHS/WEAKNESSES: Strength is social support of boyfriend. Weakness is alcohol use INTELLECT: average IMPRESSIONS: Major depressive disorder, recurrent, without psychotic features Alcohol dependance, severe, currently in withdrawal Complex Bereavement (not prolonged at this time) vs PTSD Nicotine dependance PLAN: -Patient is admitted under voluntary status to MHU for stabilization of psychiatric symptoms and safety. Patient signed adult voluntary form and medication consent and is placed in patient's chart. -Medications: Continue Remeron 15 mg qHS, Lexapro 10 mg daily Folic acid and thiamin replacement CIWA protocol with Ativan PRN Start Minipress 1 mg qHS for nightmares -Ativan PRN for anxiety/agitation -Patient was counselled on substance abuse and desired to cut back on use. Motivational interviewing. -Patient was informed of the risks, benefits and side effects of the medication and patient verbally consented to taking the medications. Patient signed med consent form and was placed in chart. -Internal Medicine consult to perform medical evaluation and physical. -SW on board for discharge planning. Encourage patient to participate in groups to work on coping skills. 11/28/23 18:04
[2023-11-28] MEDS: PRAZOSIN 1 MG CAP PO SCH (20:57)
[2023-11-28] MEDS: MIRTAZAPINE 15 MG TAB PO SCH (20:57)
[2023-11-28] MEDS: LORazepam 1 MG TAB PO PRN (21:01)
--- NOTE | 2023-11-29 06:35 | P.CONS ---
History of Present Illness - History of Present Illness This is a pleasant 58 years old female with past medical history of Asthma, H yperlipidemia, Hypertension Patient recently lost her son today with and she started drinking alcohol, she presents with alcohol use disorder and suicidal ideation Patient has been complaining of from mild dysuria in the beginning of urination but no suprapubic tenderness Patient denies chest pain or dyspnea. No abdominal pain vomiting or diarrhea. No headache dizziness weakness numbness. No sinusitis symptoms, no rash, no leg swelling or tenderness. No back pain. Patient drinks alcohol daily without specific medication, she quit smoking no illicit drugs Vitals are stable , afebrile Labs showing mild leukocytosis of 13.1, rest of CBC is unremarkable BMP showing normal sodium 138 with low potassium 2.9 and magnesium 1.3 AST slightly elevated at 59 and ALT 56 while total bilirubin is normal 0.5. Review of Systems Review of systems CONSTITUTIONAL: No fever, no malaise, no fatigue. HEENT: No recent visual problems or hearing problems. Denied any sore throat. CARDIOVASCULAR: No orthopnea, PND, no palpitations, no syncope. PULMONARY: No shortness of breath, no cough, no hemoptysis. GASTROINTESTINAL: No diarrhea, no nausea, no vomiting, no abdominal pain. Normoactive bowel sounds. NEUROLOGICAL: No headaches, no weakness, no numbness. HEMATOLOGICAL: Denies any bleeding or petechiae. GENITOURINARY: Denies any burning micturition, frequency, or urgency. MUSCULOSKELETAL/RHEUMATOLOGICAL: Denies any joint pain, swelling, or any muscle pain. ENDOCRINE: Denies any polyuria or polydipsia. Past Medical History Past Medical History: Asthma, Hyperlipidemia, Hypertension Additional Past Medical History / Comment(s): STATES HEART MURMUR A CHILD & WITH IT WAS HEARD- NOT SINCE THEN.,HEMORRHOIDS-BLEEDING AFETR BM & "HURTS", HX POLYPS, WAS ON ZOCOR FOR 3 DAYS -WAS NAUSEATED WHILE ON IT-STOPPED, HX VERTIGO, HX DT's and seizure History of Any Multi-Drug Resistant Organisms: None Reported Past Surgical History: Appendectomy Additional Past Surgical History / Comment(s): COLONOSCOPY X 2 Past Anesthesia/Blood Transfusion Reactions: No Reported Reaction Additional Past Anesthesia/Blood Transfusion Reaction / Comm: HX VERTIGO- HEIGHTS MAKE IT WORSE Past Psychological History: No Psychological Hx Reported Smoking Status: Former smoker Past Alcohol Use History: Abuse, Daily, Heavy Additional Past Alcohol Use History / Comment(s): 11/19 PPD-HAS QUIT SMOKING OFF & ON. 2-3 BEERS 2-3 X A WEEK, recently began drinking daily following of son Past Drug Use History: None Reported - Past Family History Mother Family Medical History: Cancer Additional Family Medical History / Comment(s): LIVER,KIDNEY & LUNG CA Medications and Allergies Home Medications Medication Instructions Recorded Confirmed Type Albuterol Sulfate [Proair Hfa] 1 - 2 puff INHALATION RT-Q6H PRN 12/14/14 11/27/23 History Folic Acid 1 mg PO DAILY 11/25/23 11/27/23 History Metoprolol Tartrate [Lopressor] 25 mg PO BID 11/25/23 11/27/23 History Thiamine [Vitamin B-1] 100 mg PO DAILY 11/25/23 11/27/23 History hydroCHLOROthiazide [Hydrodiuril] 25 mg PO DAILY 11/25/23 11/27/23 History Diclofenac Sodium Gel [Voltaren 1% 4 gm TOPICAL QID gm 11/27/23 11/27/23 Rx Gel] Escitalopram [Lexapro] 10 mg PO DAILY #30 tab 11/27/23 11/27/23 Rx Magnesium Oxide [Mag-Ox] 400 mg PO DAILY #30 tab 11/27/23 11/27/23 Rx Mirtazapine [Remeron] 15 mg PO HS #30 tab 11/27/23 11/27/23 Rx Allergies Allergy/AdvReac Type Severity Reaction Status Date / Time codeine Allergy Nausea & Verified 11/27/23 19:44 Vomiting oxycodone HCl [From Percodan] Allergy Nausea & Verified 11/27/23 19:44 Vomiting oxycodone terephthalate Allergy Nausea & Verified 11/27/23 19:44 [From Percodan] Vomiting Physical Exam Vitals: Vital Signs Temp Pulse Resp BP 11/28/23 09:21 93 16 140/74 11/28/23 07:03 97.6 F 100 14 155/79 Intake and Output 11/28/23 11/28/23 11/29/23 14:59 22:59 06:59 Output Total 0 Balance 0 Output: Post Void Residual 0 GENERAL: The patient is alert and oriented x3, not in any acute distress. Well developed, well nourished. HEENT: Pupils are round and equally reacting to light. EOMI. No scleral icterus. No conjunctival pallor. Normocephalic, atraumatic. No pharyngeal erythema. No thyromegaly. CARDIOVASCULAR: S1 and S2 present. No murmurs, rubs, or gallops. PULMONARY: Chest is clear to auscultation, no wheezing , no crackles. ABDOMEN: Soft, nontender, nondistended, normoactive bowel sounds. No palpable organomegaly. MUSCULOSKELETAL: No joint swelling or deformity. EXTREMITIES: No cyanosis, clubbing, or pedal edema. NEUROLOGICAL: Gross neurological examination did not reveal any focal deficits. SKIN: No rashes. no petechiae. Results CBC & Chem 7: 11/28/23 08:28 11/28/23 08:28 Labs: Abnormal Lab Results - Last 24 Hours (Table) 11/28/23 11/28/23 11/28/23 Range/Units 08:28 08:28 09:55 WBC 13.1 H (3.8-10.6) k/uL RBC 3.51 L (3.80-5.40) m/uL Neutrophils # 11.2 H (1.3-7.7) k/uL Potassium 2.9 L (3.5-5.1) mmol/L Chloride 95 L (98-107) mmol/L Glucose 114 H (74-99) mg/dL Calcium 10.5 H (8.4-10.2) mg/dL Magnesium 1.3 L (1.6-2.3) mg/dL AST 59 H (14-36) U/L ALT 56 H (4-34) U/L Urine Appearance Cloudy H (Clear) Urine Blood Small H (Negative) Ur Squamous Epith Cells 12 H (0-4) /hpf Urine Bacteria Moderate H (None) /hpf Urine Mucus Rare H (None) /hpf Assessment and Plan Assessment: Major depression with suicidal ideation Alcohol use disorder Mild transaminitis most likely secondary to alcohol effect Hypertension Hyperlipidemia Asthma, not an active issue Plan: Management of psych illnesses as per primary psych team Patient with mild leukocytosis, chest x-rays negative, no rash, no other signs of infection. Urine analysis slightly abnormal, were going to recheck labs again of the distal suspicion of infection patient may be started on short course of oral antibiotics Continue with folic acid and thiamine Continue with antihypertensive medication CIWA protocol Replace electrolytes. Magnesium potassium DVT prophylaxis: Patient is mobile and low risk for DVT We recommend patient follow up with PCP in one week after discharge For consulting us
[2023-11-29] MEDS: DICLOFENAC SODIUM GEL 100 GM TUBE TOPICAL SCH ×4 (09:06→20:39)
[2023-11-29] MEDS: ESCITALOPRAM 10 MG TAB PO SCH (09:07)
[2023-11-29] MEDS: THIAMINE 100 MG TAB PO SCH (09:07)
[2023-11-29] MEDS: FOLIC ACID 1 MG TAB PO SCH (09:07)
[2023-11-29] MEDS: hydroCHLOROthiazide 25 MG TAB PO SCH (09:07)
[2023-11-29] MEDS: MAGNESIUM OXIDE 400 MG TAB PO SCH ×2 (09:07→20:38)
[2023-11-29] MEDS: METOPROLOL TARTRATE 25 MG TAB PO SCH ×2 (09:07→20:38)
[2023-11-29 13:23] LABS: Basophils # (A) 0.1 k/uL (0-0.2); Basophils % (A) 1 %; Eosinophils # (A) 0.1 k/uL (0-0.7); Eosinophils % (A) 1 %; HCT 33.2 % (34.0-46.0); HGB 11.9 gm/dL (11.4-16.0); Lymphocytes # (A) 2.2 k/uL (1.0-4.8); Lymphocytes % (A) 26 %; MCH 35.5 pg (25.0-35.0); MCHC 35.8 g/dL (31.0-37.0); MCV 99.2 fL (80.0-100.0); Mean Platelet Volume 7.5; Monocytes # (A) 0.5 k/uL (0-1.0); Monocytes % (A) 6 %; Neutrophils # (A) 5.6 k/uL (1.3-7.7); Neutrophils % (A) 65 %; Platelet Count 292 k/uL (150-450); RBC 3.35 m/uL (3.80-5.40); RDW 14.4 % (11.5-15.5); WBC 8.5 k/uL (3.8-10.6)
[2023-11-29 13:57] LABS: African American GFR (CKD) >90 (>60 ml/min/1.73 sqM); Anion Gap 13 mmol/L; Blood Urea Nitrogen 17 mg/dL (7-17); Calcium 10.6 mg/dL (8.4-10.2); Carbon Dioxide 29 mmol/L (22-30); Chloride 96 mmol/L (98-107); Glucose 127 mg/dL (74-99); Magnesium 1.3 mg/dL (1.6-2.3); Non-African American GFR(CKD) 85 (>60 ml/min/1.73 sqM); Potassium 3.3 mmol/L (3.5-5.1); Sodium 138 mmol/L (137-145)
[2023-11-29] MEDS ORDERED: MAGNESIUM OXIDE 400 MG TAB PO STA (15:02)
[2023-11-29] MEDS: POTASSIUM CHLORIDE ER 20 MEQ TAB.ER PO SCH ×2 (15:57→23:06)
--- NOTE | 2023-11-29 17:58 | P.PN ---
Progress Note - Text Progress Note Date: 11/29/23 Interval History: Patient was seen bedside this afternoon. She had recently stated that she is going to "drink myself to "if she were to be discharged. Patient would not endorse it to this provider but has been concerned about her homeless situation. She has expressed to nursing staff that she would be interested in a rehab facility where she may be able to stay long-term. She states that she has been more excited about tomorrow because she would like to attend groups. She says that if her son was present, he would tell her to "do what you have to do to live ". She says that one of the biggest goals she has is to be able to walk without a walker which would allow her to be more independent. She reports sleeping well and eating well. She states that she had wonderful sleep and no nightmares while she has been on Minipress. She would like to be continued on this medication. She reports tolerating the medications well but is not interested in any medications for alcohol craving. The medications were discussed with her at length but she says that she "I do not have to drink" and expresses that she would like to phase her pain of grief. She also expresses interest in grief therapy. At this time patient denies any suicidal or homicidal ideations, intent or plan. Patient denies any auditory, visual hallucinations and denies any paranoia or delusions. Patient denies any side effects from the medications and has been compliant with meds. Mental Status Exam: General Appearance: Patient appears to be stated age is alert, pleasant, and cooperative. Patient appears to have fair hygiene and grooming, improving eye contact Behavior: Patient is calmly sitting in bed without any agitated behavior. Speech: Patient's speech is fluent and nonpressured. Mood/Affect: Patient reports their mood is "excited about groups", affect is congruent, less tearful Suicidality/Homicidality: Patient denies having any suicidal or homicidal ideation intent or plan. Perceptions: Patient denies any visual hallucinations and denies any auditory hallucinations Though content/process: There is no evidence of any delusional thought content and thought process circumstantial Memory and concentration: AOX3, grossly intact for the purposes of this session. Judgment and insight: Poor Assessment Major depressive disorder, recurrent, without psychotic features Alcohol dependance, severe, currently in withdrawal Complex Bereavement (not prolonged at this time) vs PTSD Nicotine dependance Plan: -Patient is admitted under voluntary status to MHU for stabilization of psychiatric symptoms and safety. Patient signed adult voluntary form and medication consent and is placed in patient's chart. -Medications: Continue Remeron 15 mg qHS, Lexapro 10 mg daily Folic acid and thiamin replacement DC CIWA protocol with Ativan PRN as she is scoring 0 Continue Minipress 1 mg qHS for nightmares -Ativan PRN for anxiety/agitation -Patient was counselled on substance abuse and desired to cut back on use. Motivational interviewing. -Patient was informed of the risks, benefits and side effects of the medication and patient verbally consented to taking the medications. Patient signed med consent form and was placed in chart. -Internal Medicine on board - on board for discharge planning. Encourage patient to participate in groups to work on coping skills.
[2023-11-29] MEDS: MIRTAZAPINE 15 MG TAB PO SCH (20:38)
[2023-11-29] MEDS: PRAZOSIN 1 MG CAP PO SCH (20:38)
[2023-11-29] MEDS: LORazepam 1 MG TAB PO PRN (20:40)
[2023-11-30] MEDS: DICLOFENAC SODIUM GEL 100 GM TUBE TOPICAL SCH ×4 (09:29→20:42)
[2023-11-30] MEDS: hydroCHLOROthiazide 25 MG TAB PO SCH (09:31)
[2023-11-30] MEDS: ESCITALOPRAM 10 MG TAB PO SCH (09:31)
[2023-11-30] MEDS: FOLIC ACID 1 MG TAB PO SCH (09:31)
[2023-11-30] MEDS: MAGNESIUM OXIDE 400 MG TAB PO SCH ×4 (09:31→20:43)
[2023-11-30] MEDS: METOPROLOL TARTRATE 25 MG TAB PO SCH ×2 (09:31→20:41)
[2023-11-30] MEDS: THIAMINE 100 MG TAB PO SCH (09:32)
[2023-11-30 12:37] LABS: Magnesium 1.3 mg/dL (1.6-2.3); Potassium 4.2 mmol/L (3.5-5.1)
--- NOTE | 2023-11-30 18:37 | P.PN ---
Subjective Progress Note Date: 11/30/23 Principal diagnosis: Assessment Major depressive disorder, recurrent, without psychotic features Alcohol dependance, severe, currently in withdrawal Complex Bereavement (not prolonged at this time) vs PTSD Nicotine dependance patient Name: Chloe Levin Date of : 1965 Patient Status: Inpatient Attending Provider: Collin Veronica Date: 11/30/23 Progress Note - Text Progress Note Date: 11/30/23 Interval History: the patient was seen via telemedicine chart was reviewed in case discussed with the nursing staff patient reports that she is been here for three days she admits that she has been depressed since her son in August 26 from [place] when asked about if the sun had cirrhosis or any other health problems patient became very defensive and stated that she does not ask her son office any medical issues patient seem to get very easily irritated when asked any further questions about alcohol use issues she continues to reinstate that she wants to learn all the skills that she can to deal with the grief she sees alcohol problem is a secondary problem and that she still needs the help with a rehab facility At this time patient denies any suicidal or homicidal ideations, intent or plan. Patient denies any auditory, visual hallucinations and denies any paranoia or delusions. Patient denies any side effects from the medications and has been compliant with meds. Mental Status Exam: General Appearance: Patient appears to be stated age is alert, pleasant, and cooperative. Patient appears to have fair hygiene and grooming, improving eye contact Behavior: patient comes across as rather defensive and projective and in a pre- contemplative state she also remains in denial about her son's illness she also denied that there is any family history of alcoholism Speech: Patient's speech is fluent and nonpressured. Mood/Affect: Patient reports their mood is "excited about groups", affect is congruent, less tearful Suicidality/Homicidality: Patient denies having any suicidal or homicidal ideation intent or plan. Perceptions: Patient denies any visual hallucinations and denies any auditory hallucinations Though content/process: There is no evidence of any delusional thought content and thought process circumstantial Memory and concentration: AOX3, grossly intact for the purposes of this session. Judgment and insight: Poor Assessment Major depressive disorder, recurrent, without psychotic features Alcohol dependance, severe, currently in withdrawal Complex Bereavement (not prolonged at this time) vs PTSD Nicotine dependance rule out personality disorder Plan: -Patient is admitted under voluntary status to MHU for stabilization of psychiatric symptoms and safety. Patient signed adult voluntary form and medication consent and is placed in patient's chart. -Medications: Continue Remeron 15 mg qHS, Lexapro 10 mg daily Folic acid and thiamin replacement DC CIWA protocol with Ativan PRN as she is scoring 0 Continue Minipress 1 mg qHS for nightmares -Ativan PRN for anxiety/agitation -Patient was counselled on substance abuse and desired to cut back on use. Motivational interviewing. -Patient was informed of the risks, benefits and side effects of the medication and patient verbally consented to taking the medications. Patient signed med consent form and was placed in chart. -Internal Medicine on board -SW on board for discharge planning. Encourage patient to participate in groups to work on coping skills. Louie Shannon MD 11/30/23 Objective - Vital Signs Vital signs: Vital Signs Temp 97.4 F L 11/30/23 06:56 Pulse 107 H 11/30/23 09:35 Resp 16 11/30/23 06:56 BP 104/55 11/30/23 09:35 Pulse Ox 97 11/30/23 06:56 FiO2 Intake & Output 11/29/23 11/30/23 11/30/23 18:59 06:59 18:59 Weight 69.5 kg - Labs CBC & Chem 7: 11/29/23 12:07 11/30/23 11:47 Labs: Abnormal Lab Results - Last 24 Hours (Table) 11/30/23 Range/Units 11:47 Magnesium 1.3 L (1.6-2.3) mg/dL
[2023-11-30] MEDS: MIRTAZAPINE 15 MG TAB PO SCH (20:41)
[2023-11-30] MEDS: PRAZOSIN 1 MG CAP PO SCH (20:41)
[2023-11-30] MEDS: LORazepam 1 MG TAB PO PRN (20:45)
[2023-12-01] MEDS: THIAMINE 100 MG TAB PO SCH (09:18)
[2023-12-01] MEDS: DICLOFENAC SODIUM GEL 100 GM TUBE TOPICAL SCH ×4 (09:18→21:09)
[2023-12-01] MEDS: ESCITALOPRAM 10 MG TAB PO SCH (09:18)
[2023-12-01] MEDS: hydroCHLOROthiazide 25 MG TAB PO SCH (09:18)
[2023-12-01] MEDS: MAGNESIUM OXIDE 400 MG TAB PO SCH ×3 (09:18→21:04)
[2023-12-01] MEDS: FOLIC ACID 1 MG TAB PO SCH (09:18)
[2023-12-01] MEDS: METOPROLOL TARTRATE 25 MG TAB PO SCH ×2 (09:19→21:04)
--- NOTE | 2023-12-01 13:53 | P.PN ---
Subjective Progress Note Date: 12/01/23 Principal diagnosis: Assessment Major depressive disorder, recurrent, without psychotic features Alcohol dependance, severe, currently in withdrawal Complex Bereavement (not prolonged at this time) vs PTSD Nicotine dependance patient Name: Chloe Levin Date of : 1965 Patient Status: Inpatient Attending Provider: Collin Veronica Date: 11/30/23 Progress Note - Text Progress Note Date: 12/01/23 Interval History: the patient was seen via telemedicine chart was reviewed in case discussed with the nursing staff The patient reports that her sister had to put down her two dogs that were both 19 years old and quite up in age she reports that one of the could barely walk and that the other one barked constantly due to dementia she says that now she is going through the grief related to her dogs as well as her son she says that she needs the rehab extremely bad because without it she will be back to drinking and will get suicidal and depressed she admits that she needs all the help she can get She reports that her sleep yesterday was erratic She reports that she still feels helpless and hopeless and is in mourning state Patient was much more cooperative today and apologize for her behavior for Being snappy yesterday Mental Status Exam: General Appearance: Patient appears to be stated age is alert, pleasant, and cooperative. Patient appears to have fair hygiene and grooming, improving eye contact Behavior: patient comes across as rather defensive and projective and in a pre- contemplative state she also remains in denial about her son's illness she also denied that there is any family history of alcoholism Speech: Patient's speech is fluent and nonpressured. Mood/Affect: Patient reports their mood is "excited about groups", affect is congruent, less tearful Suicidality/Homicidality: Patient denies having any suicidal or homicidal ideation intent or plan. Perceptions: Patient denies any visual hallucinations and denies any auditory hallucinations Though content/process: There is no evidence of any delusional thought content and thought process circumstantial Memory and concentration: AOX3, grossly intact for the purposes of this session. Judgment and insight: Poor Assessment Major depressive disorder, recurrent, without psychotic features Alcohol dependance, severe, currently in withdrawal Complex Bereavement (not prolonged at this time) vs PTSD Nicotine dependance rule out personality disorder Plan: -Patient is admitted under voluntary status to MHU for stabilization of psychiatric symptoms and safety. Patient signed adult voluntary form and medication consent and is placed in patient's chart. -Medications: Continue Remeron 15 mg qHS, Lexapro 10 mg daily Folic acid and thiamin replacement DC CIWA protocol with Ativan PRN as she is scoring 0 Continue Minipress 1 mg qHS for nightmares -Ativan PRN for anxiety/agitation -Patient was counselled on substance abuse and desired to cut back on use. Motivational interviewing. -Patient was informed of the risks, benefits and side effects of the medication and patient verbally consented to taking the medications. Patient signed med consent form and was placed in chart. -Internal Medicine on board -SW on board for discharge planning. Encourage patient to participate in groups to work on coping skills. Louie Shannon MD 12/01/23 Objective - Vital Signs Vital signs: Vital Signs Temp 97.4 F L 11/30/23 06:56 Pulse 108 H 12/01/23 09:22 Resp 16 11/30/23 06:56 BP 133/71 12/01/23 09:22 Pulse Ox 97 11/30/23 06:56 FiO2 - Labs CBC & Chem 7: 11/29/23 12:07 11/30/23 11:47 Labs: Abnormal Lab Results - Last 24 Hours (Table) 12/01/23 Range/Units 09:23 Magnesium 1.3 L (1.6-2.3) mg/dL Microbiology - Last 24 Hours (Table) 11/28/23 12:00 Urine Culture - Preliminary Urine,Voided Gram Neg Bacilli
[2023-12-01] MEDS: MIRTAZAPINE 15 MG TAB PO SCH (21:04)
[2023-12-01] MEDS: PRAZOSIN 1 MG CAP PO SCH (21:04)
[2023-12-01] MEDS: LORazepam 1 MG TAB PO PRN (21:06)
[2023-12-02 07:34] VITALS: TEMP 97.5
[2023-12-02] MEDS: MAGNESIUM OXIDE 400 MG TAB PO SCH ×3 (08:56→20:37)
[2023-12-02] MEDS: METOPROLOL TARTRATE 25 MG TAB PO SCH ×2 (08:57→20:37)
[2023-12-02] MEDS: ESCITALOPRAM 10 MG TAB PO SCH (08:57)
[2023-12-02] MEDS: hydroCHLOROthiazide 25 MG TAB PO SCH (08:57)
[2023-12-02] MEDS: DICLOFENAC SODIUM GEL 100 GM TUBE TOPICAL SCH ×4 (08:57→20:37)
[2023-12-02] MEDS: THIAMINE 100 MG TAB PO SCH (08:57)
[2023-12-02] MEDS: FOLIC ACID 1 MG TAB PO SCH (08:57)
[2023-12-02] MEDS: LORazepam 1 MG TAB PO PRN ×2 (08:58→20:37)
[2023-12-02 12:04] LABS: African American GFR (CKD) 61 (>60 ml/min/1.73 sqM); Anion Gap 11 mmol/L; Blood Urea Nitrogen 24 mg/dL (7-17); Calcium 10.9 mg/dL (8.4-10.2); Carbon Dioxide 24 mmol/L (22-30); Chloride 99 mmol/L (98-107); Glucose 96 mg/dL (74-99); Non-African American GFR(CKD) 53 (>60 ml/min/1.73 sqM); Potassium 3.9 mmol/L (3.5-5.1); Sodium 134 mmol/L (137-145)
--- NOTE | 2023-12-02 16:21 | P.PN ---
Subjective Progress Note Date: 12/02/23 Principal diagnosis: Assessment Major depressive disorder, recurrent, without psychotic features Alcohol dependance, severe, currently in withdrawal Complex Bereavement (not prolonged at this time) vs PTSD Nicotine dependance patient Name: Chloe Levin Date of : 1965 Patient Status: Inpatient Attending Provider: Collin Veronica Date: 12/02/23 Interval History: the patient was seen via telemedicine chart was reviewed in case discussed with the nursing staff The patient reports that she still feels the grief what is coping she says that she is also looking forward to her inpatient substances program where she has been cleared for admission to the [facility] she says that she does need the place for her treatment for substance use she does admit that she feels down but more so because of her alcohol dependency issues she denies any suicidal or homicidal ideation or plans Mental Status Exam: Mental Status Appearance: Well groomed and Casually dressed Associations: within normal limits Psychomotor: Within Normal Limits Attention Span and Concentration: Normal Behavior: calm, cooperative and adequate rapport can be established Speech: normal pitch and normal volume Mood: Flat Affect: Downcast but improving Thought Process: within normal limits Thought Content: appropriate to situation Orientation: person, place, time/date, situation, day of week, month of year and year Cognition: grossly intact Insight: Intact Judgment: Intact Estimate of Intelligence: Average Fund of Knowledge: Aware of current events, Intact and Vocabulary appropriate Immediate Memory: intact Recent Memory: intact Remote Memory: intact Abnormal Movements: None, Assessment Major depressive disorder, recurrent, without psychotic features Alcohol dependance, severe, currently in withdrawal Complex Bereavement (not prolonged at this time) vs PTSD Nicotine dependance rule out personality disorder Plan: -Patient is admitted under voluntary status to MHU for stabilization of psychiatric symptoms and safety. Patient signed adult voluntary form and medication consent and is placed in patient's chart. -Medications: Continue Remeron 15 mg qHS, Lexapro 10 mg daily Folic acid and thiamin replacement DC [facility] protocol with Ativan PRN as she is scoring 0 Continue Minipress 1 mg qHS for nightmares -Ativan PRN for anxiety/agitation -Patient was counselled on substance abuse and desired to cut back on use. Motivational interviewing. -Patient was informed of the risks, benefits and side effects of the medication and patient verbally consented to taking the medications. Patient signed med consent form and was placed in chart. -Internal Medicine on board - on board for discharge planning. Encourage patient to participate in groups to work on coping skills. Tentative discharge tomorrow with the rough roll to [facility] for inpatient substance use program Louie Shannon MD Objective - Vital Signs Vital signs: Vital Signs Temp 97.5 F L 12/02/23 06:50 Pulse 92 12/02/23 06:50 Resp 16 12/02/23 06:50 BP 108/73 12/02/23 06:50 Pulse Ox 97 12/02/23 06:50 FiO2 - Labs CBC & Chem 7: 11/29/23 12:07 12/02/23 10:43 Labs: Abnormal Lab Results - Last 24 Hours (Table) 12/02/23 Range/Units 10:43 Sodium 134 L (137-145) mmol/L BUN 24 H (7-17) mg/dL Creatinine 1.15 H (0.52-1.04) mg/dL Calcium 10.9 H (8.4-10.2) mg/dL Microbiology - Last 24 Hours (Table) 11/28/23 12:00 Urine Culture - Final Urine,Voided Escherichia coli
[2023-12-02] MEDS: PRAZOSIN 1 MG CAP PO SCH (20:37)
[2023-12-02] MEDS: MIRTAZAPINE 15 MG TAB PO SCH (20:37)
[2023-12-03] MEDS: DICLOFENAC SODIUM GEL 100 GM TUBE TOPICAL SCH (09:13)
[2023-12-03] MEDS: MAGNESIUM OXIDE 400 MG TAB PO SCH (09:14)
[2023-12-03] MEDS: ESCITALOPRAM 10 MG TAB PO SCH (09:14)
[2023-12-03] MEDS: METOPROLOL TARTRATE 25 MG TAB PO SCH (09:15)
[2023-12-03] MEDS: FOLIC ACID 1 MG TAB PO SCH (09:15)
[2023-12-03] MEDS: hydroCHLOROthiazide 25 MG TAB PO SCH (09:15)
[2023-12-03] MEDS: THIAMINE 100 MG TAB PO SCH (09:15)
[2023-12-03 09:42] VITALS: BP 115/74; PULSE 103; RESP 20
== END 2023-12-03 11:41 | disposition other institution (70) | DRG 751 ==
LOC: 3MHU 15:53
PROVIDERS: ADMIT Psychiatry & Neurology Psychiatry; ATTEND Psychiatry & Neurology Psychiatry
DX: F33.9 Major depressive disorder, recurrent, unspecified (principal); F10.231 Alcohol dependence with withdrawal delirium; R45.851 Suicidal ideations; Z28.310 Unvaccinated for COVID-19; I10 Essential (primary) hypertension; E78.5 Hyperlipidemia, unspecified; J45.909 Unspecified asthma, uncomplicated; K64.9 Unspecified hemorrhoids; R74.01 Elevation of levels of liver transaminase levels; Z79.899 Other long term (current) drug therapy; Z87.891 Personal history of nicotine dependence; Z59.00 Homelessness unspecified; Z56.0 Unemployment, unspecified; Z63.4 Disappearance and death of family member; Z88.5 Allergy status to narcotic agent; Z71.41 Alcohol abuse counseling and surveillance of alcoholic; Z71.51 Drug abuse counseling and surveillance of drug abuser; Z81.8 Family history of other mental and behavioral disorders
CPT/HCPCS: 71045; 80048; 80053; 81001; 83735; 84132; 84443; 85025; 87077; 87086; 87186

== ENCOUNTER → 2024-02-04 | Outpatient (CLI) | payer OTHER ==
--- NOTE | 2024-02-04 14:09 | XR ---
EXAMINATION TYPE: XR lumbar spine 2 or 3V DATE OF EXAM: 02/04/2024 1:56 PM CLINICAL INDICATION:Female, 58 years old with history of M53.3 Sacrococcygeal disorders; PH[facility] COMPARISON: None TECHNIQUE: XR lumbar spine 2 or 3V - Frontal, lateral and coned in L5-S1 lateral views of the spine. FINDINGS: No evidence of any acute osseous pathology. No evidence of loss of vertebral body height i s seen. There is normal alignment of the lumbar vertebral bodies. Mild scattered disc space narrowing . Multilevel marginal osteophyte formation throughout the visualized spine. There is facet joint arth ropathy throughout the spine. Scattered at least mild neural foraminal stenosis. IMPRESSION: 1. No acute fracture. 2. Mild to moderate multilevel disc degeneration.
== END | disposition home or self-care (01) ==
LOC: RADXRMAIN 13:35
PROVIDERS: ATTEND Physical Medicine & Rehabilitation Brain Injury Medicine
DX: M51.36 Other intervertebral disc degeneration, lumbar region (principal); M53.3 Sacrococcygeal disorders, not elsewhere classified
CPT/HCPCS: 72100

== ENCOUNTER → 2024-02-04 | Outpatient (CLI) | payer OTHER ==
--- NOTE | 2024-02-10 09:30 | MM ---
Reason for Exam: Screening (asymptomatic). Last mammogram was performed 2 year(s) and 2 month(s) ago. Patient History: Menarche at age 14. First Full-Term at age 29. Postmenopausal. Patient has history of breast feeding. Risk Values: Kimberli 5 year model risk: 1.4%. NCI Lifetime model risk: 8.7%. Prior Study Comparison: 07/30/2004 Bilateral Screening Mammogram, [facility]. 08/13/2004 Left Special View Mammogram, [facility]. 02/01/2009 Bilateral Screening Mammogram, [facility]. 06/08/2017 [facility] . 11/28/2021 Bilateral Diagnostic Mammogram, [facility] . Tissue Density: The breasts are heterogeneously dense, which may obscure small masses. Findings: Analyzed By CAD. There is no suspicious group of microcalcifications or new suspicious mass in either breast. There are benign calcifications. Overall Assessment: Benign, BI-RAD 2 Management: Screening Mammogram of both breasts in 1 year. . Patient should continue monthly self-breast exams. A clinical breast exam by your physician is recommended on an annual basis. This exam should not preclude additional follow-up of suspicious palpable abnormalities. Note on Kimberli scores and lifetime risk: 1. A Kimberli score greater than 3% is considered moderate risk. If this is the case, consider specialist referral to assess eligibility for a risk reducing agent. 2. If overall lifetime risk for the development of breast cancer is 20% or higher, the patient may qualify for future screening with alternating mammogram and breast MRI. Electronically signed and approved by: Coleman Alejandra M.D. Radiologis
== END | disposition home or self-care (01) ==
LOC: RADMAMWWP 13:58
PROVIDERS: ATTEND Family Medicine
DX: Z12.31 Encounter for screening mammogram for malignant neoplasm of breast (principal); Z78.0 Asymptomatic menopausal state
CPT/HCPCS: 77063; 77067

== ENCOUNTER → 2024-02-17 | Outpatient (CLI) | payer OTHER ==
--- NOTE | 2024-02-17 11:46 | FL ---
EXAMINATION TYPE: FL barium swallow DATE OF EXAM: 02/17/2024 11:08 AM COMPARISON: None CLINICAL INDICATION:Female, 58 years old with history of R13.14 DYSPHAGIA; PHH, TECHNIQUE: The procedure was explained and patient history elicited. All patient questions were ans wered prior to start of procedure. Multiple spot fluoroscopic images of the esophagus were obtained a fter the oral ingestion of effervescent crystals and liquid barium as the contrast agent. Fluoroscopic time: 12 sec Fluoroscopic images: 0 Radiographs taken: 86 DAP: Not reported [id number] FINDINGS: The esophagus demonstrates normal primary and secondary peristalsis. The esophageal mucosa is smooth without evidence of focal stricture, ulceration, or abnormal outpouching. No gastroesophageal reflu x disease was identified. IMPRESSION: Normal esophagram.
== END | disposition home or self-care (01) ==
LOC: RADUSWWP 09:21
PROVIDERS: ATTEND Otolaryngology
DX: R13.14 Dysphagia, pharyngoesophageal phase (principal)
CPT/HCPCS: 74220

== ENCOUNTER 2024-04-01 12:38 | Day surgery (SDC) | payer OTHER ==
[2024-03-24 16:45] VITALS: BMI 32.7
[2024-04-01] MEDS: LACTATED RINGERS 1,000 ML IV SCH (14:14)
[2024-04-01 14:22] VITALS: RESP 16; TEMP 97.8
[2024-04-01] MEDS ORDERED: PROPOFOL 10 MG/ML 20 ML VIAL IV ONE (14:56)
--- NOTE | 2024-04-01 15:11 | P.PCN ---
Date of Procedure: 04/01/24 Procedure(s) Performed: BRIEF HISTORY: Patient is a 58-year-old pleasant white female scheduled for an elective colonoscopy as a part of screening for colon cancer. PROCEDURE PERFORMED: Colonoscopy. PREOPERATIVE DIAGNOSIS: Screening for colon cancer. IV sedation per Anesthesia. PROCEDURE: After informed consent was obtained, the patient, was brought into the endoscopy unit. IV sedation was administered by Anesthesia under continuous monitoring. Digital rectal examination was normal. Small external skin tags noted. Initially the Olympus CF-160 flexible video colonoscope was then inserted in the rectum, gradually advanced into the cecum without any difficulty. Careful examination was performed as the scope was gradually being withdrawn. Ileocecal valve and the appendiceal orifice were visualized and appeared normal. Prep was excellent. Mucosa of the cecum, ascending colon, transverse colon, descending colon, sigmoid colon, and rectum appeared normal. Retroflexion was performed in the rectum and small internal hemorrhoids were seen. The patient tolerated the procedure well. IMPRESSION: Normal-appearing colon from rectum to cecum with no evidence of colorectal neoplasia Small internal hemorrhoids Small external skin tags. RECOMMENDATIONS: Findings of this examination were discussed with the patient as well as her family.. Was advised to have repeat screening colonoscopy in 10 years. Advised you to use [id number] hemorrhoid H cream as needed.
[2024-04-01 16:08] VITALS: BP 151/77; PULSE 74
== END 2024-04-01 16:02 | disposition home or self-care (01) ==
LOC: ORWHC2ENDO 12:38
PROVIDERS: ATTEND Internal Medicine Gastroenterology
DX: Z12.11 Encounter for screening for malignant neoplasm of colon (principal); K64.8 Other hemorrhoids; L91.8 Other hypertrophic disorders of the skin; I10 Essential (primary) hypertension; E78.5 Hyperlipidemia, unspecified; J45.909 Unspecified asthma, uncomplicated; F17.200 Nicotine dependence, unspecified, uncomplicated; G40.909 Epilepsy, unspecified, not intractable, without status epilepticus; K21.9 Gastro-esophageal reflux disease without esophagitis; Z79.51 Long term (current) use of inhaled steroids; Z79.899 Other long term (current) drug therapy; Z98.890 Other specified postprocedural states
CPT/HCPCS: 45378; J2704

== ENCOUNTER → 2024-04-21 | Outpatient (CLI) | payer OTHER ==
--- NOTE | 2024-04-22 00:29 | MR ---
EXAMINATION TYPE: MR lumbar spine wo con DATE OF EXAM: 04/21/2024 COMPARISON: NONE HISTORY: Neuropathy into Rt lower extremity TECHNIQUE: Multiplanar, multisequence imaging of the lumbar spine is performed without IV contrast. FINDINGS: Sagittal images of the lumbar spine show vertebral body heights to appear satisfactory. Sli ght grade 1 anterolisthesis L3 on L4. Multilevel disc desiccation L3-L4 through the L5-S1 levels. Mod erate disc space narrowing with heterogeneous Modic type I endplate changes at L5-S1 level and modera te anterior spurring The conus medullaris is normal in position and signal ending superior L1 level. Axial images show T12-L1 through L2-L3 levels to appear within normal limits. Axial images at L3-L4 level show mild to moderate facet arthropathy bilaterally. There is left latera l disc protrusion causing mild left-sided neural foraminal narrowing. Spinal canal is preserved. Axial images at L4-L5 level show mild facet arthropathy bilaterally. There is mild broad disc bulge m inimally effaces the anterior thecal sac. Bilateral neural foramina are patent. Axial images at L5-S1 level show moderate broad disc bulge and mild facet arthropathy bilaterally. Sp inal canal is preserved. There is increased epidural fat at this level. There is mild to moderate rig ht and moderate to severe left-sided neural foraminal narrowing. Paraspinal muscle bulk shows mild posterior generalized atrophy. Probable 2.8 cm thin-walled cyst in the central lower pole right kidney image 18 is noted. 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
== END | disposition home or self-care (01) ==
LOC: RADMRIMAIN 14:54
PROVIDERS: ATTEND Physical Medicine & Rehabilitation Brain Injury Medicine
DX: M47.816 Spondylosis without myelopathy or radiculopathy, lumbar region (principal); M51.16 Intervertebral disc disorders with radiculopathy, lumbar region; G60.9 Hereditary and idiopathic neuropathy, unspecified; G62.9 Polyneuropathy, unspecified
CPT/HCPCS: 72148